=== PATIENT | female | born 1960 | race Caucasian/White ===

== ENCOUNTER → 2022-11-09 07:50 | Outpatient (CLI) | payer OTHER, SELFPAY ==
--- NOTE | 2022-11-09 08:11 | DI.ECHO.S_ITS ---
Name: VELIA SNOW Study Date: 11/09/2022 Height: 64 in Hospital ReadingLocation: Weight: 197 lb Gender: Female BSA: 1.9 m2 : 1960 Age: 62 yrs Reason For Study: MURMUR HR: 60 Ordering Physician: SHELBIE PRESTON Performed By: SWETHA HUI Referring: SHELBIE PRESTON Interpretation Summary Procedure: A two-dimensional transthoracic echocardiogram with color flow and Doppler was performed. The study quality was technically adequate. Comparison is made with the echocardiogram of 08/22/2011. The patient had a bundle branch block rhythm during the exam. Left Ventricle: The left ventricle is normal in size and wall thickness. Left ventricular systolic function is normal. The ejection fraction is estimated to be 60-65%. There are no focal wall motion abnormalities. Diastolic parameters suggest probable normal left ventricular diastolic function and normal filling pressures. Right Ventricle: The right ventricle is normal in size and function. Atria: Both atria are normal in size. There is no Doppler evidence for an interatrial shunt. The atrial septum is aneurysmal. Mitral Valve: The mitral valve leaflets appear mildly thickened, but open well. There is trace mitral regurgitation. Aortic Valve: The aortic valve is trileaflet. The aortic valve opens well. There is no aortic valve stenosis. No aortic regurgitation is present. Tricuspid Valve: The tricuspid valve is normal in structure and function. There is trace tricuspid regurgitation. Pulmonary artery pressures cannot be estimated because of the lack of a measurable TR jet velocity. Pulmonic Valve: The pulmonic valve leaflets are thin and pliable; valve motion is normal. There is no pulmonic valvular regurgitation. There is no significant valvular heart disease. Great Vessels: The aortic root is normal size. The ascending aorta is normal in size. The IVC is of normal diameter and collapses greater than 50% with a sniff. This suggests a low right atrial pressure of 3 mm Hg. Pericardium/ Pleura There is no pericardial effusion. There is no pleural effusion. MMode/2D Measurements & Calculations LVIDd: 4.2 cm LVIDs: 2.2 cm FS: 47.6 % IVSd: 0.70 cm LVPWd: 1.0 cm LV ty. diameter/BSA (cm/m^2): 2.2 LV sys. diameter/BSA (cm/m^2): 1.1 LVOT diam: 2.0 cm Ao root diam: 2.9 cm asc Aorta Diam: 3.2 cm LA A2 area: 18.9 cm2 LA A4 area: 18.4 cm2 LA length (vol): 5.2 cm LA vol: 57.0 ml LA vol index: 29.3 ml/m2 RA long axis: 5.0 cm LVLs ap4: 5.8 cm LVLd ap2: 7.7 cm LVLs ap2: 6.5 cm TAPSE_phl: 2.2 cm Doppler Measurements & Calculations Ao V2 max: 148.0 cm/sec Ao V2 mean: 106.0 cm/sec Ao max P.0 mmHg Ao mean P.0 mmHg Ao V2 VTI: 35.5 cm LVOT Max Adrian: 120.0 cm/sec LV V1 max P.8 mmHg LV V1 VTI: 27.4 cm JT(I,D): 2.4 cm2 JT(V,D): 2.5 cm2 sev ratio: 0.77 JT indexed to BSA (cm^2/m^2): 1.2 MV E max adrian: 94.7 cm/sec MV A max adrian: 85.2 cm/sec MV E/A: 1.1 Med Peak E' Adrian: 5.5 cm/sec E/E' med: 17.2 Lat Peak E' Adrian: 9.4 cm/sec E/E' lat: 10.1 E/e' average: 13.6 MV dec time: 0.20 sec PA V2 max: 109.0 cm/sec PA V2 mean: 80.6 cm/sec PA mean P.0 mmHg PA pr(Accel): 47.5 mmHg SV(LVOT): 86.1 ml AV VR_phl: 0.81 JT(VTI)/BSA_phl: 1.3 MV P1/2t-pr_phl: 60.0 msec Reading Physician:
== END ==
PROVIDERS: PCP Nurse Practitioner Family; Referring Provider Nurse Practitioner Family; Visit Provider Nurse Practitioner Family
DX: R01.1 Cardiac murmur, unspecified (principal); I34.0 Nonrheumatic mitral (valve) insufficiency; I07.1 Rheumatic tricuspid insufficiency
CPT/HCPCS: 93306